=== PATIENT | male | born 1960 | race Caucasian/White ===

== ENCOUNTER 2016-12-15 13:56 | Emergency (ER) | payer MEDICARE, MEDICAID ==
--- NOTE | 2016-12-15 14:06 | EDM.PDOC ---
ED HPI GENERAL MEDICAL PROBLEM - General Chief Complaint: Cardiovascular Problem Stated Complaint: BY AMBULANCE Time Seen by Provider: 12/15/16 13:57 Source of Information: Reports: Patient, EMS, EMS Notes Reviewed, Old Records, Provider (Dr. Domínguez, [facility]), RN, RN Notes Reviewed History Limitations: Reports: No Limitations - History of Present Illness INITIAL COMMENTS - FREE TEXT/NARRATIVE: Sent from [facility] by Dr. Domínguez for evaluation of recurrent near syncope and lightheadedness x2 weeks. Labs and clinic data from past and today' s visit accompany the pt. Pt reports a dry cough for at least two weeks. Denies chest pain, palpitations, edema, wt gain or loss, abdominal pain, N/V/D/C, headache, fever, or chills. Onset: Other (2 weeks ago) Duration: Constant Location: Reports: Generalized Severity: Moderate Improves with: Reports: None Worsens with: Reports: Other (orthostatic changes) Context: Denies: Activity, Exercise, Lifting, Sick Contact, Trauma Associated Symptoms: Reports: No Other Symptoms Left Upper Abdomen Pain Score (Numeric/FACES): 5 - Related Data Allergies Allergy/AdvReac Type Severity Reaction Status Date / Time codeine Allergy Itching Verified 06/23/14 19:29 Home Meds: Home Meds Acetaminophen 3 tab PO TID 12/15/16 [History] Hydrochlorothiazide 1 tab PO DAILY 12/15/16 [History] Lisinopril [Lisinopril] 1 tab PO DAILY 12/15/16 [History] Propranolol [Inderal LA] 1 tab PO DAILY 12/15/16 [History] Sertraline [Zoloft] 100 mg PO DAILY 12/15/16 [History] levETIRAcetam [Levetiracetam] 750 mg PO DAILY 12/15/16 [History] Past Medical History Cardiovascular History: Reports: Hypertension Respiratory History: Reports: Asthma Gastrointestinal History: Reports: Hepatitis (Hep C) Genitourinary History: Reports: Chronic Renal Insuffiency (CKD Stage III), Other (See Below) (phimosis) Musculoskeletal History: Reports: Back Pain, Chronic (DDD L-spine) Neurological History: Reports: Seizure Psychiatric History: Reports: Addiction (Hx of polysubstance abuse), Depression Hematologic History: Reports: Anemia Immunologic History: Reports: Other (See Below) (Fibromyositis) - Past Surgical History GI Surgical History: Reports: Hernia, Inguinal (left) Social & Family History - Family History Family Medical History: Noncontributory - Tobacco Use Smoking Status *Q: Never Smoker Second Hand Smoke Exposure: No - Alcohol Use Days Per Week of Alcohol Use: 0 - Recreational Drug Use Recreational Drug Use: No - Living Situation & Occupation Living situation: Reports: , with Spouse Occupation: Disabled ED ROS GENERAL - Review of Systems Review Of Systems: ROS reveals no pertinent complaints other than HPI. ED EXAM, GENERAL - Physical Exam Exam: See Below Exam Limited By: No Limitations General Appearance: Alert, No Apparent Distress, Thin Eye Exam: Bilateral Eye: Normal Inspection Ears: Hearing Grossly Normal Nose: Normal Inspection Throat/Mouth: Normal Inspection, Normal Lips, Normal Oropharynx, Normal Voice, No Airway Compromise Head: Atraumatic, Normocephalic Neck: Normal Inspection, Supple, Non-Tender, Full Range of Motion. No: Lymphadenopathy (L), Lymphadenopathy (R) Respiratory/Chest: No Respiratory Distress, Lungs Clear, No Accessory Muscle Use , Decreased Breath Sounds Cardiovascular: Normal Peripheral Pulses, Regular Rate, Rhythm, No Edema, No Gallop, No JVD, No Murmur, No Rub GI/Abdominal: Normal Bowel Sounds, Soft, Non-Tender, No Distention, No Abnormal Bruit (Male) Exam: Deferred Rectal (Males) Exam: Deferred Back Exam: Decreased Range of Motion (chronic/stable). No: CVA Tenderness (L), CVA Tenderness (R) Extremities: Normal Inspection, Normal Range of Motion, Non-Tender, Normal Capillary Refill, No Pedal Edema Neurological: Alert, Oriented, CN II-XII Intact, Normal Cognition, No Motor/ Sensory Deficits Psychiatric: Normal Affect, Depressed Mood Skin Exam: Warm, Dry, Intact, Normal Color, No Rash EKG INTERPRETATION EKG Date: 12/15/16 Time: 15:20 Rhythm: Other (SR) Rate (Beats/Min): 87 [place]: Normal P-Wave: Present QRS: Normal ST-T: Normal QT: Normal Comparison: NA - No Prior EKG Course - Vital Signs Last Recorded V/S: Last Vital Signs Temp 36.8 C 12/15/16 13:56 Pulse 89 12/15/16 13:56 Resp 20 12/15/16 13:56 BP 95/73 12/15/16 13:56 Pulse Ox 97 12/15/16 13:56 - Orders/Labs/Meds Orders: Active Orders 24 hr Category Date Time Status EKG 12 Lead [EKG Documentation Completion] [RC] STAT Care 12/15/16 15:20 Ordered MAGNESIUM [CHEM] Stat Lab 12/15/16 15:20 Ordered TROPONIN I [CHEM] Stat Lab 12/15/16 15:20 Ordered TSH ULTRASENSITIVE [CHEM] Stat Lab 12/15/16 15:20 Ordered Labs: See scanned lab results. Copy of [facility] records forwarded to [facility]. - Radiology Interpretation Free Text/Narrative:: CXR: no acute process per Rad. report. Departure - Departure Time of Disposition: 15:38 Disposition: DC/Tfer to [facility] 02 Reason for Transfer *Q: Primary PCI Indicated Condition: Serious Clinical Impression: Near syncope, Chronic kidney disease, stage 3, History of seizure disorder Forms: ED Department Discharge, Interfacility Transfer EMTALA - My Orders Last 24 Hours: My Active Orders 12/15/16 15:20 EKG 12 Lead [EKG Documentation Completion] [RC] STAT MAGNESIUM [CHEM] Stat TROPONIN I [CHEM] Stat TSH ULTRASENSITIVE [CHEM] Stat - Assessment/Plan Last 24 Hours: My Active Orders 12/15/16 15:20 EKG 12 Lead [EKG Documentation Completion] [RC] STAT MAGNESIUM [CHEM] Stat TROPONIN I [CHEM] Stat TSH ULTRASENSITIVE [CHEM] Stat
--- NOTE | 2016-12-15 15:09 | CR ---
Clinical history: 56-year-old male with cough (near syncopal episode). Interpretation: Normal cardiac silhouette and pulmonary vascular pattern. No alveolar edema or depen dent effusion. No lung mass, hilar lymphadenopathy or focal lobar infiltrate/atelectasis. No lobar collapse. Tata thorax unremarkable. No pneumothorax. CONCLUSION: No acute cardiopulmonary abnormality.
[2016-12-15 15:28] VITALS: BP 107/68
--- NOTE | 2016-12-16 15:57 | EKG ---
12/15/2016 - JOESPH DAVIS - A 12-lead EKG shows normal sinus rhythm. No significant ST elevation or ST depression noted on this 12-lead EKG. Nonspecific ST-T wave changes noted on lead V2. [facility] /[id number]
== END 2016-12-15 15:54 ==
LOC: DL.ED 13:56
DX: R55 Syncope and collapse (principal); G43.909 Migraine, unspecified, not intractable, without status migrainosus; I12.9 Hypertensive chronic kidney disease with stage 1 through stage 4 chronic kidney disease, or unspecified chronic kidney disease; N18.3 Chronic kidney disease, stage 3 (moderate); J45.909 Unspecified asthma, uncomplicated; F32.9 Major depressive disorder, single episode, unspecified; Z86.2 Personal history of diseases of the blood and blood-forming organs and certain disorders involving the immune mechanism; Z98.890 Other specified postprocedural states; Z79.899 Other long term (current) drug therapy; Z88.5 Allergy status to narcotic agent
CPT/HCPCS: 36415; 71020; 84443; 84484; 93005; 93010; 99285

== ENCOUNTER 2022-06-07 19:58 | Emergency (ER) | payer MEDICARE, MEDICAID ==
[2022-06-07 21:11] VITALS: BP 170/98; PULSE 103
== END 2022-06-07 21:36 | disposition left against medical advice (07) ==
LOC: DL.ED 19:58
DX: Z53.21 Procedure and treatment not carried out due to patient leaving prior to being seen by health care provider (principal)

== ENCOUNTER 2022-07-18 14:50 | Emergency (ER) | payer MEDICARE, MEDICAID ==
[2022-07-18 15:12] VITALS: BP 125/69; PULSE 73
[2022-07-18] MEDS ORDERED: Ondansetron 4 MG/2 ML SDV IV ONE (15:15)
[2022-07-18] MEDS ORDERED: HYDROmorphone 1 MG/ML Syringe IVPUSH ONE ×2 (15:15→16:17)
[2022-07-18] MEDS ORDERED: Sodium Chloride 0.9% 10 ML Syringe FLUSH PRN (15:15)
== END 2022-07-18 16:40 ==
LOC: DL.ED 14:50
DX: M24.451 Recurrent dislocation, right hip (principal); I10 Essential (primary) hypertension; Z88.5 Allergy status to narcotic agent; Z79.899 Other long term (current) drug therapy
CPT/HCPCS: 96374; 96375; 96376; 99284; J1170; J2405; J3490

== ENCOUNTER 2022-10-25 14:23 | Emergency (ER) | payer MEDICARE, MEDICAID ==
[2022-10-25 14:45] VITALS: BP 136/87; PULSE 104
[2022-10-25] MEDS ORDERED: HYDROmorphone 0.5 MG/0.5 ML Syringe IVPUSH ONE (16:41)
[2022-10-25] MEDS ORDERED: Ondansetron 4 MG/2 ML SDV IVPUSH ONE (16:41)
== END 2022-10-25 18:54 ==
LOC: DL.ED 14:23
DX: S73.004A Unspecified dislocation of right hip, initial encounter (principal); I12.9 Hypertensive chronic kidney disease with stage 1 through stage 4 chronic kidney disease, or unspecified chronic kidney disease; N18.9 Chronic kidney disease, unspecified; J45.909 Unspecified asthma, uncomplicated; Z88.5 Allergy status to narcotic agent; Z79.899 Other long term (current) drug therapy; Z96.649 Presence of unspecified artificial hip joint; X50.1XXA Overexertion from prolonged static or awkward postures, initial encounter
CPT/HCPCS: 01200; 27252; 73502; 73552; 96374; 96375; 99283; 99284; J1170; J2405

== ENCOUNTER 2024-02-24 09:59 | Emergency (ER) | payer MEDICARE, MEDICAID ==
[2024-02-24 14:43] VITALS: BP 143/77; PULSE 112
== END 2024-02-24 14:20 | disposition left against medical advice (07) ==
LOC: DL.ED 09:59
DX: Z53.21 Procedure and treatment not carried out due to patient leaving prior to being seen by health care provider (principal)